=== PATIENT | male | born 1945 | race Caucasian/White ===

== ENCOUNTER 2016-12-18 19:05 | Inpatient (IN) | payer MEDICARE, BC ==
[2016-12-18] MEDS ORDERED: NS 0.9% 1000 ML* 1,000 ML IV ONE (19:08)
[2016-12-18] MEDS ORDERED: Aspirin TAB* 325 MG PO ONE (19:08)
[2016-12-18 19:28] LABS: Hematocrit 34 % (42-52); Hemoglobin 10.9 g/dl (14.0-18.0); Mean Corpuscular HGB Conc 33 g/dl (31-36); Mean Corpuscular Hemoglobin 31 pg (27-31); Mean Corpuscular Volume 94 fL (80-94); Mean Platelet Volume 10 um3 (7.4-10.4); Red Blood Count 3.59 10^6/ul (4.0-5.4); Red Cell Distribution Width 14 % (10.5-15); White Blood Count 12.3 10^3/ul (3.5-10.8)
[2016-12-18 19:29] LABS: Add Diff/Slide Review? Slide Review Added; Comments Flag Yes
--- NOTE | 2016-12-18 19:29 | RAD ---
INDICATION: Neurologic change. Code ricardo. COMPARISON: MRI brain 04/26/2015; CT brain 04/25/2015 TECHNIQUE: Noncontrast axial source images were acquired from the skull base to the vertex. FINDINGS: Ventricles/sulci: There is cortical atrophy with compensatory dilatation of the CSF spaces. Brain parenchyma: There is a remote pontine infarct. There is mild periventricular and subcortical white matter change compatible with chronic ischemia. Intracranial hemorrhage:None. Extra-axial spaces: There are no abnormal extra axial fluid collections or evidence of extra-axial mass. Calvarium: There is no calvarial fracture or other calvarial abnormality. Scalp: There is no evidence of scalp or extracalvarial soft tissue abnormality. Paranasal sinuses/mastoid: There is right ethmoid sinus. Compressive thickening. There is no air-fluid level in the right maxillary antrum The remaining paranasal sinuses and mastoid air cells are clear. Other: None. IMPRESSION: Cortical atrophy with chronic ischemic changes to include a remote pontine infarct. No acute findings. Findings called to ED at 1924 hours
[2016-12-18 19:43] LABS: Albumin 3.6 g/dL (3.2-5.2); BUN/Creatinine Ratio 14.3 (8-20); Calcium 9.2 mg/dL (8.6-10.3); EGFR African American 61.1 (>60); EGFR Non-African American 47.5 (>60); Globulin 3.3 g/dL (2-4); HDL Cholesterol 33.7 mg/dL; Potassium 5.4 mmol/L (3.5-5.0); Total Bilirubin 0.8 mg/dL (0.2-1.0); Total Protein 6.9 g/dL (6.4-8.9)
[2016-12-18 19:44] LABS: Troponin I 0.01 ng/mL (<0.04)
--- NOTE | 2016-12-18 19:51 | RAD ---
INDICATION: Altered mental status COMPARISON: Chest x-ray 04/25/2015 TECHNIQUE: An AP portable view obtained at 1945 hours is submitted. FINDINGS: Bones/Soft Tissues: There are no acute bony findings. Cardiomediastinal: The cardiomediastinal silhouette is normal. Lungs: The examination is expiratory with vascular crowding. There are no focal infiltrates. Pleura: There are no pleural effusions. Other: None IMPRESSION: EXPIRATORY EXAMINATION. NO FOCAL INFILTRATES.
[2016-12-18] MEDS ORDERED: Naloxone* 0.4 MG/ML 10 ML VIAL ONE (20:17)
[2016-12-18] MEDS ORDERED: Naloxone* 0.4 MG/ML 1 ML VIAL IV ONE (20:32)
--- NOTE | 2016-12-18 22:44 | CONSULT ---
Consult Consult: 71 yo RHM w/ HTN, HL,CKD, DM (likely neuropathy, left foot ulceration), CAD with stent (on brilinta), right pontine stroke, presenting with confusion and altered sensorium. There was initial concern by the ED re left vs bilateral weakness, with a fluctuating exam and cooperation. He has no specific concerns and answers most questions in delayed monosyllables. He is accompanied by his daughter and ex ; they note that he is irritable and short tempered at times vs tractable at other times. He apparently was in the [facility] ED yesterday after a fall and confusion beyond baseline; he uses a cane in general. [facility]; his daughter notes that the terms encephalopathy and early dementia have been used. His daughter checked his BG at home and it was 120s. He had a right pontine stroke found in 05/07 after presenting with a variety of symptoms, including a fall and erratic driving; he was seen by Dr Multani at the time. 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 Often falls asleep. Cranial Nerves: Funduscopy deferred; PERRL; corneals intact; resists eye opening ; EOM intact grossly but formal testing cooperation limited; same with visual esquivel; face symmetric; tongue midline Motor: normal tone; distal foot intrinsic atrophy. Power testing is 5/5, with mild intermittent cooperation limitations eg refused to participate in manual motor testing of left leg, which I had seen him lift volitionally earlier. Frequent myoclonus and asterixis with arms out Sensory: vibration and touch are intact Reflexes: 1+ arms; knees and ankles absent. Plantar responses are equivocal to flexor right vs left foot bandaged Coordination: finger to nose is accurate Gait: deferred Serologies: LFTs, trop, LDL, NH3 are all normal or negative; WBC 12, K 5.4, Cr 1.46 Priors: aic 10.7 in 05/07; cpk and hiv neg in 2011 Imaging: Head CT reviewed and negative save remote right pontine infarct (was acute on mri in 05/07); also wonder re right temporal atrophy 05/07 CTA and MRA negative Echo neg 05/07, incl bubble study Cxr neg Impression: 71 yo RHM w/ HTN, HL,CKD, DM (likely neuropathy, left foot ulceration), CAD with stent (on brilinta), right pontine stroke (negative large vessel and cardiac workup), presenting with global waxing waning confusion and altered sensorium, myoclonus/asterixis. His exam is otherwise non localizing; and CT shows only his old infarct. 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 He has some modest lab abnormalities; further testing could include UA, foot inspection and xrays or other imaging if clinically indicated to assess for osteo, getting his labs/workup from recent [facility] visit. There are no other acute neuro recommendations.
--- NOTE | 2016-12-18 23:51 | ED ---
Jeanmarie Galicia Billy, scribed for Duc Chance MD on 12/18/16 at 1935 . Neurological HPI - HPI Summary HPI Summary: Patient is a 71 year-old male BIBA to [facility] presenting with constant left-sided extremity weakness and speech impairment. Per EMS, his son, who has been with him all day, states that he first noticed the symptoms at 1720 today. 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 EMS reports his speech has improved en route. The patient reports dizziness at this time but is unable to describe this sensation further. He denies any pain. Patient has a history of multiple TIAs. - History of Current Complaint Chief Complaint: EDAltMentalStatus Stated Complaint: AMS-POSS STROKE Time Seen by Provider: 12/18/16 19:08 Hx Obtained From: Patient, EMS Onset/Duration: Gradual Onset, Started minutes ago Timing: Constant Onset Severity: Moderate Current Severity: Moderate Neurological Deficit Location: LUE, LLE Character: Dizzy, Motor Weakness, Impaired Speech Aggravating: Nothing Alleviating: Nothing Associated Signs and Symptoms: Positive: Weakness, Impaired Speech - Allergy/Home Medications Allergies/Adverse Reactions: Allergies Allergy/AdvReac Type Severity Reaction Status Date / Time No Known Allergies Allergy Verified 11/09/14 17:26 Home Medications: Home Medications Ascorbic Acid TAB* [Vitamin C TAB*] 500 mg PO DAILY 12/18/16 [History Confirmed 12/18/16] Atorvastatin* [Lipitor*] 80 mg PO 1700 12/18/16 [History Confirmed 12/18/16] DULoxetine DR SOTO* [Cymbalta CAP*] 30 mg PO DAILY 12/18/16 [History Confirmed ] Insulin Aspart PEN(NF) [Novolog Flexpen] 100 unit SC TID 12/18/16 [History Confirmed 12/18/16] Levofloxacin TAB* [Levaquin TAB*] 750 mg PO DAILY 12/18/16 [History Confirmed ] Levothyroxine TAB* [Synthroid TAB*] 125 mcg PO DAILY 12/18/16 [History Confirmed 12/18/16] Metoprolol Tartrate TAB* [Lopressor TAB*] 12.5 mg PO DAILY 12/18/16 [History Confirmed 12/18/16] Ticagrelor* [Brilinta*] 90 mg PO BID 12/18/16 [History Confirmed 12/18/16] clonazePAM TAB(*) [KlonoPIN TAB(*)] 0.5 mg PO BID 12/18/16 [History Confirmed ] PMH/Surg Hx/FS Hx/Imm Hx Endocrine/Hematology History: Reports: Hx Diabetes, Hx Thyroid Disease Cardiovascular History: Reports: Hx Coronary Artery Disease, Hx Hypercholesterolemia, Hx Hypertension Denies: Hx Congestive Heart Failure Respiratory History: Reports: Hx Chronic Obstructive Pulmonary Disease (COPD) GI History: Reports: Hx Gastroesophageal Reflux Disease History: Reports: Hx Benign Prostatic Hyperplasia, Hx Kidney Stones Denies: Hx Renal Disease Musculoskeletal History: Reports: Hx Back Problems Sensory History: Reports: Hx Contacts or Glasses - Not with pt Opthamlomology History: Reports: Hx Contacts or Glasses - Not with pt Neurological History: Reports: Hx Dementia - Vascular, Hx Transient Ischemic Attacks (TIA) - Surgical History Surgery Procedure, Year, and Place: kidney stone ~2009, growth on back ~1983 Infectious Disease History: No Infectious Disease History: Denies: Traveled Outside the [place] in Last 30 Days - Family History Known Family History: Positive: Cardiac Disease - Social History Alcohol Use: None Substance Use Type: Reports: None Smoking Status (MU): Former Smoker Type: Smokeless Tobacco Review of Systems Negative: Fever Neurological: Other - dizzy Positive: Weakness, Slurred Speech All Other Systems Reviewed And Are Negative: Yes Physical Exam Triage Information Reviewed: Yes Vital Signs On Initial Exam: Initial Vitals Temp Pulse Resp BP Pulse Ox 100.3 F 94 18 130/61 100 12/18/16 19:10 12/18/16 19:10 12/18/16 19:10 12/18/16 19:10 12/18/16 19:10 Vital Signs Reviewed: Yes Diagnostics - Vital Signs Vital Signs Temp Pulse Resp BP Pulse Ox 12/18/16 19:10 100.3 F 94 18 130/61 100 - Laboratory Lab Results: Lab Results 12/18/16 Range/Units 19:22 WBC 12.3 H (3.5-10.8) 10^3/ul RBC 3.59 L (4.0-5.4) 10^6/ul Hgb 10.9 L (14.0-18.0) g/dl Hct 34 L (42-52) % MCV 94 (80-94) fL MCH 31 (27-31) pg MCHC 33 (31-36) g/dl RDW 14 (10.5-15) % Plt Count 169 (150-450) 10^3/ul MPV 10 (7.4-10.4) um3 Neut % (Auto) 74.7 (38-83) % Lymph % (Auto) 7.6 L (25-47) % [place] % (Auto) 17.2 H (1-9) % Eos % (Auto) 0 (0-6) % Baso % (Auto) 0.5 (0-2) % Absolute Neuts (auto) 9.2 H (1.5-7.7) 10^3/ul Absolute Lymphs (auto) 0.9 L (1.0-4.8) 10^3/ul Absolute Monos (auto) 2.1 H (0-0.8) 10^3/ul Absolute Eos (auto) 0 (0-0.6) 10^3/ul Absolute Basos (auto) 0.1 (0-0.2) 10^3/ul Absolute Nucleated RBC 0.01 10^3/ul Nucleated RBC % 0.1 Result Diagrams: 12/18/16 19:22 12/18/16 19:22 Lab Statement: Any lab studies that have been ordered have been reviewed, and results considered in the medical decision making process. - Radiology CXR Radiology Interpretation Completed By: Radiologist - Expiratory examination. No focal infiltrates. - CT brain CT Interpretation Completed By: Radiologist - Cortical atrophy with chronic ischemic changes to include a remote pontine infarct. No acute findings. - EKG 1915 EKG Interpretation: borderline sinus tachy 91 bpm, no STEMI NIH Scale - NIH Scale Level of Consciousness: Responds to Minor Stimulation Ask Patient the Month and His/Her Age: Neither Correct/Aphasic Ask Pt to Open/Close Eyes and Lead Radiologic Technologist/Release Non-Paretic Hand: Both Correctly Best Gaze (Only Horizontal Eye Movement): Normal Visual Field Testing: No Visual Loss Facial Paresis-Pt to Smile & Close Eyes or Grimace Symmetry: Normal/Symmetrical Motor Function - Right Arm: Drifts LT 10 seconds Motor Function - Left Arm: Drifts LT 10 seconds Motor Function - Right Leg: Drifts LT 10 seconds Motor Function - Left Leg: No Effort Against Lacey Limb Ataxia-Must be out of Proportion to Weakness Present: Absent Sensory (Use Pinprick to Test Arms/Legs/Trunk/Face): Normal Best Language (Describe Picture, Name Items): Some Loss Dysarthria (Read Several Words): Slurs Some Words Extinction and Inattention: No Abnormality Total Score: 11 Course/Dx - Course Course Of Treatment: Mr. Efrain Preston presented with an alteration in his baseline mental status. It was difficult to ascertain what his baseline was and his exam fluctuated. His temp was high normal but he was not tachy and did not meet sepsis requirements. He had had a partial toe amputaion on the and the wound was clean. He was given fluids and consulted on by neuro who felt that this was not an acute stroke but more likely a metabolic encephalopathy. - Diagnoses Provider Diagnoses: Altered mental status During the Visit The Following Alert/Code Occurred: Code Vu - Physician Notifications Discussed Care of Patient With: Dr. Mata (radiology) @ 1923: CT brain findings reviewed. Dr. Lyon (neurology) @ 193. Dr. Lyon ( neurology) @ 2004: physical exam findings discussed. Dr. Dash (hospitalist) @ 2: accepts admission. Instructed by Provider To: Admit As Inpatient Discharge - Discharge Plan Condition: Stable Disposition: ADMITTED TO [facility] Referrals: Memo Donaldson MD [Primary Care Provider] - The documentation as recorded by the Jeanmarie dennis Billy accurately reflects the service I personally performed and the decisions made by me, Duc Chance MD.
[2016-12-19] MEDS ORDERED: Cetirizine* 10 MG TAB PO PRN (00:31)
[2016-12-19] MEDS ORDERED: Dextrose 50% Syringe 50 ML* 25 GM/50 ML SYRINGE IV PUSH PRN (01:54)
[2016-12-19] MEDS: Levothyroxine TAB* 125 MCG TAB PO SCH (05:41)
[2016-12-19] MEDS: Heparin VIAL(*) 5000 UNITS/ML VIAL (FIVE THOUSAND) SUBCUT SCH ×3 (05:51→21:37)
[2016-12-19] MEDS ORDERED: Insulin LISPRO* 1 UNITS UNIT SUBCUT ONE (09:39)
[2016-12-19] MEDS: Insulin LISPRO* 1 UNITS UNIT SUBCUT SCH ×4 (09:45→21:37)
[2016-12-19] MEDS: Gabapentin CAP(*) 300 MG PO SCH ×2 (09:48→19:37)
[2016-12-19] MEDS: Enalapril TAB* 20 MG PO SCH ×2 (09:48→19:37)
[2016-12-19] MEDS: Finasteride TAB* 5 MG PO SCH (09:49)
[2016-12-19] MEDS: Metoprolol Tartrate TAB* 25 MG PO SCH (09:49)
[2016-12-19] MEDS: DULoxetine DR CAP* 30 MG CAP.DR PO SCH (09:49)
[2016-12-19] MEDS: Ascorbic Acid TAB* 500 MG PO SCH (09:49)
[2016-12-19] MEDS: clonazePAM TAB(*) 0.5 MG PO SCH ×2 (09:49→19:38)
[2016-12-19] MEDS: Aspirin EC Low Dose* 81 MG TAB.EC PO SCH (09:49)
[2016-12-19] MEDS: Cholecalciferol TAB* 1000 UNITS PO SCH (09:49)
[2016-12-19] MEDS: Ticagrelor* 90 MG TAB PO SCH ×2 (09:50→19:37)
[2016-12-19] MEDS: Acetaminophen TAB* 325 MG PO PRN ×2 (13:07→21:00)
[2016-12-19 16:16] LABS: Urine Bilirubin Negative (Negative); Urine Glucose 1+(50 mg/dL) (Negative); Urine Nitrite Negative (Negative)
[2016-12-19] MEDS: Atorvastatin* 80 MG TAB PO SCH (17:50)
[2016-12-19 18:49] LABS: TSH (Thyroid Stimulating Horm) 0.36 mcIU/mL (0.34-5.60)
[2016-12-19] MEDS ORDERED: Haloperidol INJ IV/IM* 5 MG/ML AMP IV SLOW PU ONE (19:15)
[2016-12-19] MEDS ORDERED: Haloperidol INJ IV/IM* 5 MG/ML AMP ONE (19:21)
--- NOTE | 2016-12-19 20:38 | PN ---
Subjective Date of Service: 12/19/16 Interval History: Patient seen and examined at bedside. Pt isn't willing to participate in discussing how he is feeling, when asked he says "lousy" and closes his eyes. Pt 's daughter states that he has been declining over the last few months. She reports that he had a toe amputation approximately 10 days ago, at which time he was started on Levaquin. Pt was also started on Klonopin in the last month. Pt's states that he has developed a "shuffling" gait and been unsteady for the last few months also. She states that his happens intermittently and his has been having increased falls. C/O headache, pain with urination, and generalized pain. No other complaints at this time. Denies dizziness. Family History: Unchanged from Admission Social History: Unchanged from Admission Past Medical History: Unchanged from Admission Objective Active Medications: Acetaminophen (Tylenol Tab*) 650 mg PO Q4H PRN Reason: FEVER/PAIN Ascorbic Acid (Vitamin C Tab*) 500 mg PO DAILY [facility] Aspirin (Aspirin Ec Low Dose*) 81 mg PO DAILY [facility] Atorvastatin Calcium (Lipitor*) 80 mg PO 1700 [facility] Cetirizine HCl (Zyrtec*) 10 mg PO DAILY PRN; Protocol Reason: Allergy Symptoms Cholecalciferol (Vitamin D Tab*) 2,000 units PO DAILY [facility] Clonazepam (Klonopin Tab(*)) 0.5 mg PO BID [facility] Dextrose (D50w Syringe 50 Ml*) 12.5 gm IV PUSH .FOR FS < 60 - SS PRN Reason: FS < 60 Duloxetine HCl (Cymbalta Cap*) 30 mg PO DAILY [facility] Enalapril Maleate (Vasotec Tab*) 20 mg PO BID [facility] Finasteride (Proscar Tab*) 5 mg PO DAILY [facility] Gabapentin (Neurontin Cap(*)) 900 mg PO BID [facility] Heparin Sodium (Porcine) (Heparin Vial(*)) 5,000 units SUBCUT Q8HR [facility] Insulin Glargine (Lantus(*)) 100 units SUBCUT BEDTIME [facility] Insulin Human Lispro (Humalog*) 0 units SUBCUT ACHS [facility]ER Reason: Protocol Levothyroxine Sodium (Synthroid Tab*) 125 mcg PO 0600 [facility] Metoprolol Tartrate (Lopressor Tab*) 12.5 mg PO DAILY [facility] Ticagrelor (Brilinta*) 90 mg PO BID [facility]ER Vital Signs 12/19/16 12/19/16 12/19/16 02:00 02:30 02:44 Temperature Pulse Rate 82 82 81 Respiratory 26 0 15 Rate Blood Pressure 131/54 103/37 114/52 (mmHg) O2 Sat by Pulse 93 93 92 Oximetry 12/19/16 12/19/16 12/19/16 03:00 03:01 03:09 Temperature 99.2 F Pulse Rate 81 84 Respiratory 9 15 Rate Blood Pressure 127/59 (mmHg) O2 Sat by Pulse 94 94 Oximetry 12/19/16 12/19/16 12/19/16 04:13 04:18 04:21 Temperature 98.5 F Pulse Rate 88 Respiratory 18 18 16 Rate Blood Pressure 146/44 (mmHg) O2 Sat by Pulse 98 Oximetry 12/19/16 12/19/16 12/19/16 06:49 07:29 08:00 Temperature 98.1 F 98.9 F Pulse Rate 95 91 Respiratory 16 16 16 Rate Blood Pressure 132/67 134/54 (mmHg) O2 Sat by Pulse 97 93 93 Oximetry 12/19/16 12/19/16 12/19/16 08:49 09:48 09:49 Temperature 98.6 F Pulse Rate 92 Respiratory 16 18 18 Rate Blood Pressure 127/59 (mmHg) O2 Sat by Pulse 92 Oximetry 12/19/16 12/19/16 12/19/16 11:48 11:49 13:57 Temperature 98.1 F 98.4 F Pulse Rate 71 69 Respiratory 18 16 16 Rate Blood Pressure 118/63 109/57 (mmHg) O2 Sat by Pulse 97 98 Oximetry 12/19/16 12/19/16 12/19/16 19:37 19:38 19:44 Temperature 97.9 F Pulse Rate 85 Respiratory 22 22 22 Rate Blood Pressure 127/61 (mmHg) O2 Sat by Pulse 98 Oximetry Oxygen Devices in Use Now: Nasal Cannula - 2L Appearance: NAD, laying in bed. Eyes: No Scleral Icterus, PERRLA Ears/Nose/Mouth/Throat: NL Teeth, Lips, Gums, Mucous Membranes Moist Neck: NL Appearance and Movements; NL JVP, Trachea Midline Respiratory: Symmetrical Chest Expansion and Respiratory Effort, Clear to Auscultation Cardiovascular: NL Sounds; No Murmurs; No JVD, RRR Abdominal: NL Sounds; No Tenderness; No Distention - Bowel sounds present Extremities: No Edema Skin: - - Incision to Neurological: NL Muscle Strength and Tone, - - Alert and Oriented to Place "[place]" and people. Unsteady gait. Lines/Tubes/Other Access: Clean, Dry and Intact Peripheral IV - site benign Nutrition: Taking PO's Result Diagrams: 12/18/16 19:22 12/18/16 19:22 Assess/Plan/Problems-Billing Assessment: Mr. Preston is a 71 yo male with PMH significant for HTN, HLD, hypothyroidism, CKD, DM, CAD and CVA who presented to the emergency room with altered mental status. - Patient Problems (1) Altered mental status Code(s): R41.82 - ALTERED MENTAL STATUS, UNSPECIFIED SNOMED Code(s): 241758930 Comment: Pts family states he has become more confused over the last few months and weeks. Pts family also reports sun downing. Pt has been on Levaquin after his toe amputation. Neurology consult, input appreciated. Neuro doesnt feel this is a new CVA. ? dementia, toxic metabolic encephalopathy. Pt with leukocytosis, chest x-ray with no acute findings, UA WNL and feet do not appear to be source of infection. Suspect that his may reflect postoperative delirium. Will stop Levaquin. Offer supportive care. Will check TSH. (2) HTN (hypertension) Code(s): I10 - ESSENTIAL (PRIMARY) HYPERTENSION SNOMED Code(s): 95547546 Comment: SBP 100-140's. Continue metoprolol and vasotec (3) CAD (coronary artery disease) Code(s): I25.10 - ATHSCL HEART DISEASE OF [place] CORONARY ARTERY W/O ANG PCTRS SNOMED Code(s): 30076955 Comment: Stable. Continue ASA, statin, betablocker (4) Diabetes Code(s): E11.9 - TYPE 2 DIABETES MELLITUS WITHOUT COMPLICATIONS SNOMED Code(s) : 74321036 Comment: Glucose 150-180's. Continue Lispro SS and lantus (5) Hypothyroidism Code(s): E03.9 - HYPOTHYROIDISM, UNSPECIFIED SNOMED Code(s): 54838496 Comment: Will check TSH, continue levothyroxine (6) DVT prophylaxis Code(s): QCH5386 - SNOMED Code(s): 283475703 Comment: Continue SQ Heparin (7) DNR (do not resuscitate) Status and Disposition: Inpatient. Suspect Pt will need to have NH placement.
[2016-12-19] MEDS: Insulin GLARGINE(*) 1 UNITS UNIT SUBCUT SCH (21:36)
[2016-12-20] MEDS: Levothyroxine TAB* 125 MCG TAB PO SCH (05:35)
[2016-12-20] MEDS: Heparin VIAL(*) 5000 UNITS/ML VIAL (FIVE THOUSAND) SUBCUT SCH ×3 (05:37→22:21)
--- NOTE | 2016-12-20 08:09 | HP ---
HISTORY AND PHYSICAL: DATE OF ADMISSION: 12/19/16 CHIEF COMPLAINT: Confusion, altered mental status. HISTORY OF PRESENT ILLNESS: The patient is a 71-year-old gentleman who presented to [facility] with a chief complaint of increased confusion as per his family. Apparently last night before he came he slipped and fell. He went to [facility] for an evaluation, where they did not find anything acute including a CAT scan and was sent home. The family says they were told he has a new diagnosis of encephalopathy but were not sure what that meant. They admitted also he was getting more and more confused lately and now he lives alone because his could not stay there anymore. Apparently, he gets somewhat violent too. What happened was yesterday his came over to see him and he was sitting outside and he went inside to sit on living room couch and would not get up. His tried to make him comfortable and putting pillows under him but he would not move. The daughter came over much later that day and saw he was still in the same position. His legs were stiff. They could not get him to move, so they called 911. 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 PAST MEDICAL HISTORY: Significant for BPH, diabetes mellitus, hypertension, GERD, hyperlipidemia, frontal lobe disease, new onset vascular dementia, TIAs, hypothyroidism, tremor, coronary artery disease, kidney stones, low back pain, olecranon bursitis, and sciatica. CURRENT MEDICATIONS: 1. Metoprolol tartrate 12.5 mg daily. 2. Atorvastatin 80 mg daily. 3. Levofloxacin 750 mg daily. 4. Duloxetine 30 mg daily. 5. Cholecalciferol 2000 units daily. 6. Ascorbic acid 500 mg daily. 7. Potassium chloride 20 mEq 3 times a day. 8. Omeprazole 20 mg twice daily. 9. Levothyroxine 125 mcg daily. 10. Finasteride 5 mg daily. 11. Nandini 180 mg daily. 12. Enalapril 20 mg twice daily. 13. Clonazepam 0.5 mg twice daily. 14. Lantus insulin 100 units subcu at bedtime. 15. Insulin aspartate 100 units 3 times daily. 16. Brilinta 90 mg twice daily. 17. Gabapentin 900 mg twice daily. 18. Aspirin 81 mg daily. ALLERGIES: He has allergies/adverse reactions to ELAVIL and BENZODIAZEPINES. FAMILY HISTORY: His mother in 40s of "female cancer". Father in his 70s of an NE. SOCIAL HISTORY: No tobacco, quit many years ago. Chews tobacco though. No alcohol or recreational drug use. 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 His daughter is his healthcare proxy, Magdalena Kelly, number is [phone]. REVIEW OF SYSTEMS: Unable to obtain from patient because of his confusion. PHYSICAL EXAMINATION GENERAL: A pleasant gentleman lying in bed, in no acute distress. VITAL SIGNS: Temperature is 99.2 degrees, heart rate 88 beats per minute, respiratory rate 18 breaths per minute, pulse ox 98%, blood pressure 146/44. HEENT: Normocephalic and atraumatic. Pupils are equal, round, and reactive to light. Moist mucous membranes. NECK: Supple. No JVD, bruits, palpable thyroid, or lymphadenopathy. CHEST: Clear to auscultation and percussion bilaterally. CARDIOVASCULAR: S1, S2 appreciated. ABDOMEN: Positive bowel sounds in all 4 quadrants. Soft, nontender, and nondistended. No hepatosplenomegaly. EXTREMITIES: No cyanosis, clubbing. He has some mild edema. +2 peripheral pulses bilaterally. NEURO: He is alert and oriented x1. Moves all extremities. SKIN: No distinct rashes and no abnormalities. LABORATORY DATA: White count 12.3, hemoglobin 10.9, hematocrit 34, platelets 169. Sodium is 133, potassium 5.4, chloride 98, CO2 29, BUN 21, creatinine 1.47 , glucose 187. Troponin 0.01. Urinalysis is unremarkable. Brain CT was interpreted by Radiology as cortical atrophy with chronic ischemic changes to include remote pontine infarct. No acute findings. Chest x-ray was interpreted by Radiology as examination no focal infiltrate. EKG shows normal sinus rhythm with 91 beats per minute. Normal axis. No acute ST-T wave changes. ASSESSMENT AND PLAN: 1. Altered mental status: It is unclear at this point what is going on. I think he does have dementia and perhaps the trauma from hitting his head has made an acute change. There does not seem to be any infection. Regardless, the patient should be monitored. He may need a social work consult. He may need placement, as he may be unsafe at home at this time. I do not think he needs anything like a spinal tap. He has no focal neurological problems, no neck stiffness, no fever, no headache. We have attempted UA. He does have some what appears to be an infection on his foot, but it is unimpressive that he osteo causing this. 2. Diabetes mellitus. Continue Lantus, finish the sliding scale insulin. 3. Coronary artery disease, stable. Continue current regimen. 4. Hypertension. Borderline control. Continue current regimen. Adjust medications accordingly. 5. Fluids, Electrolytes, Nutrition. Consistent carb diet. 6. Deep venous thrombosis prophylaxis. Heparin subcu. 7. The patient is a [id number]. TIME SPENT: Over 75 minutes was spent on this H and P; more than 40 minutes of which was spent in direct [id number] contact with the patient in evaluation, physical exam, counseling, and coordination of care. CC: Memo Donaldson MD * [id number]/[facility] #: [id number] MTDD
[2016-12-20] MEDS: Insulin LISPRO* 1 UNITS UNIT SUBCUT SCH ×4 (08:11→20:57)
[2016-12-20] MEDS: Acetaminophen TAB* 325 MG PO PRN (09:45)
[2016-12-20] MEDS: Cholecalciferol TAB* 1000 UNITS PO SCH (09:46)
[2016-12-20] MEDS: Gabapentin CAP(*) 300 MG PO SCH ×2 (09:47→19:25)
[2016-12-20] MEDS: Ticagrelor* 90 MG TAB PO SCH ×2 (09:47→19:25)
[2016-12-20] MEDS: Enalapril TAB* 20 MG PO SCH ×2 (09:48→19:26)
[2016-12-20] MEDS: Finasteride TAB* 5 MG PO SCH (09:49)
[2016-12-20] MEDS: clonazePAM TAB(*) 0.5 MG PO SCH ×2 (09:49→19:26)
[2016-12-20] MEDS: Aspirin EC Low Dose* 81 MG TAB.EC PO SCH (09:49)
[2016-12-20] MEDS: DULoxetine DR CAP* 30 MG CAP.DR PO SCH (09:49)
[2016-12-20] MEDS: Metoprolol Tartrate TAB* 25 MG PO SCH (09:50)
[2016-12-20] MEDS: Ascorbic Acid TAB* 500 MG PO SCH (09:50)
--- NOTE | 2016-12-20 10:47 | PN ---
Subjective Date of Service: 12/20/16 Interval History: Patient seen and examined at bedside. Pt states that he is feeling better today. Denies fever, chills, headache, shortness of breath, chest discomfort, urinary symptoms, pain, N/V/D. Pt is anxious to leave, explained he needed to be seen by Physical Therapy. Patient's family is concerned that he has an acute Neurological process and would like Neurology to re-eval the patient. Family History: Unchanged from Admission Social History: Unchanged from Admission Past Medical History: Unchanged from Admission Objective Active Medications: Acetaminophen (Tylenol Tab*) 650 mg PO Q4H PRN Reason: FEVER/PAIN Ascorbic Acid (Vitamin C Tab*) 500 mg PO DAILY [facility] Aspirin (Aspirin Ec Low Dose*) 81 mg PO DAILY [facility] Atorvastatin Calcium (Lipitor*) 80 mg PO 1700 [facility] Cetirizine HCl (Zyrtec*) 10 mg PO DAILY PRN; Protocol Reason: Allergy Symptoms Cholecalciferol (Vitamin D Tab*) 2,000 units PO DAILY [facility] Clonazepam (Klonopin Tab(*)) 0.5 mg PO BID [facility] Dextrose (D50w Syringe 50 Ml*) 12.5 gm IV PUSH .FOR FS < 60 - SS PRN Reason: FS < 60 Duloxetine HCl (Cymbalta Cap*) 30 mg PO DAILY [facility] Enalapril Maleate (Vasotec Tab*) 20 mg PO BID [facility] Finasteride (Proscar Tab*) 5 mg PO DAILY [facility] Gabapentin (Neurontin Cap(*)) 900 mg PO BID [facility] Heparin Sodium (Porcine) (Heparin Vial(*)) 5,000 units SUBCUT Q8HR [facility] Insulin Glargine (Lantus(*)) 100 units SUBCUT BEDTIME [facility] Insulin Human Lispro (Humalog*) 0 units SUBCUT ACHS [facility] Levothyroxine Sodium (Synthroid Tab*) 125 mcg PO 0600 [facility] Metoprolol Tartrate (Lopressor Tab*) 12.5 mg PO DAILY [facility] Ticagrelor (Brilinta*) 90 mg PO BID [facility] Vital Signs 12/19/16 12/19/16 12/19/16 11:48 11:49 13:57 Temperature 98.1 F 98.4 F Pulse Rate 71 69 Respiratory 18 16 16 Rate Blood Pressure 118/63 109/57 (mmHg) O2 Sat by Pulse 97 98 Oximetry 12/19/16 12/19/16 12/19/16 19:37 19:38 19:44 Temperature 97.9 F Pulse Rate 85 Respiratory 22 22 22 Rate Blood Pressure 127/61 (mmHg) O2 Sat by Pulse 98 Oximetry 12/19/16 12/20/16 12/20/16 23:24 04:25 08:10 Temperature 97.7 F 97.7 F 98.3 F Pulse Rate 92 81 87 Respiratory 16 16 16 Rate Blood Pressure 122/62 116/61 138/66 (mmHg) O2 Sat by Pulse 96 96 90 Oximetry Oxygen Devices in Use Now: Nasal Cannula - 2L Appearance: NAD, sitting up in a chair. Eyes: No Scleral Icterus, PERRLA Ears/Nose/Mouth/Throat: NL Teeth, Lips, Gums, Mucous Membranes Moist Neck: NL Appearance and Movements; NL JVP, Trachea Midline Respiratory: Symmetrical Chest Expansion and Respiratory Effort, Clear to Auscultation Cardiovascular: NL Sounds; No Murmurs; No JVD, RRR Abdominal: NL Sounds; No Tenderness; No Distention - Bowel sounds present Extremities: No Edema Skin: - - Incision to left second toe well approximated with sutures intact, Ulcer to 2rd left toe. No errythema to left toes. Pt with purple discoloration to right toes, Pt states this is a birthmark. Neurological: - - Alert and Oriented to Person, Place, states it's 2011 and Yris is the President. Lines/Tubes/Other Access: Clean, Dry and Intact Peripheral IV - site benign Nutrition: Taking PO's Result Diagrams: 12/18/16 19:22 12/18/16 19:22 Additional Lab and Data: Assess/Plan/Problems-Billing Assessment: Mr. Preston is a 71 yo male with PMH significant for HTN, HLD, hypothyroidism, CKD, DM, CAD and CVA who presented to the emergency room with altered mental status. - Patient Problems (1) Altered mental status Code(s): R41.82 - ALTERED MENTAL STATUS, UNSPECIFIED SNOMED Code(s): 447477945 Comment: - Continues to have some confusion, ? if he is now back to baseline. - Pt has been on Levaquin after his toe amputation. This has been stopped. - Neurology consult, input appreciated. Suspect dementia, toxic metabolic encephalopathy. - Pt with leukocytosis, chest x-ray with no acute findings, UA WNL and feet do not appear to be source of infection. - TSH WNL - Suspect that his may be delirium in addition to Pt's dementia. - Offer supportive care. - Will ask Neurology to re-eval (2) HTN (hypertension) Code(s): I10 - ESSENTIAL (PRIMARY) HYPERTENSION SNOMED Code(s): 42704019 Comment: SBP 110-130's. Continue metoprolol and vasotec (3) CAD (coronary artery disease) Code(s): I25.10 - ATHSCL HEART DISEASE OF [place] CORONARY ARTERY W/O ANG PCTRS SNOMED Code(s): 93544500 Comment: Stable. Continue ASA, statin, betablocker (4) Diabetes Code(s): E11.9 - TYPE 2 DIABETES MELLITUS WITHOUT COMPLICATIONS SNOMED Code(s) : 61838024 Comment: Glucose 80-210's. Continue Lispro SS and lantus (5) Hypothyroidism Code(s): E03.9 - HYPOTHYROIDISM, UNSPECIFIED SNOMED Code(s): 96498745 Comment: TSH 0.36, continue levothyroxine (6) DVT prophylaxis Code(s): XLZ0170 - SNOMED Code(s): 437816846 Comment: Continue SQ Heparin (7) DNR (do not resuscitate) Status and Disposition: Inpatient. Suspect Pt will need to have NH placement.
--- NOTE | 2016-12-20 11:42 | EEG ---
ELECTROENCEPHALOGRAPHY: DATE OF STUDY: 12/19/16 - ROOM #449 LOCATION: He is an inpatient. REFERRING PHYSICIAN: Dr. Dash. CLINICAL PROBLEM: Increased confusion in a patient with dementia. MEDICATIONS: Include: 1. Insulin. 2. Gabapentin. 3. Clonazepam. REPORT: This 16-channel EEG is remarkable for background activity consisting of a posterior alpha rhythm of about 8 cycles per second which is symmetric and seems to be suppressed by eye opening. Low-voltage fast rhythms otherwise predominating. Movement artifact is noted occasionally. Central and bitemporal slowing is noted intermittently consistent with drowsiness. Stage II sleep is not clearly achieved. Activation procedures are not attempted. There are no focal, lateralized, or epileptiform discharges. CLINICAL IMPRESSION: Essentially normal awake EEG. There are no epileptiform features to this recording. [id number]/CPS #: [id number] MTDD
[2016-12-20] MEDS: Atorvastatin* 80 MG TAB PO SCH (17:43)
--- NOTE | 2016-12-20 17:44 | PN ---
Progress Note - Progress Note SOAP: Neurology progress note Date of service 12/20/16 Subjective: The patient had no acute events since admission. His mental status has been improving since admission. The patient's family had requested a re-evaluation by neurology. Objective: Vital Signs Temp Pulse Resp BP Pulse Ox 97.9 F 69 16 107/57 98 12/20/16 15:48 12/20/16 15:48 12/20/16 15:48 12/20/16 15:48 12/20/16 15:48 Current Medications Acetaminophen (Tylenol Tab*) 650 mg PO Q4H PRN PRN Reason: FEVER/PAIN Last Admin: 12/20/16 09:45 Dose: 650 mg Ascorbic Acid (Vitamin C Tab*) 500 mg PO DAILY [facility] Last Admin: 12/20/16 09:50 Dose: 500 mg Aspirin (Aspirin Ec Low Dose*) 81 mg PO DAILY [facility] Last Admin: 12/20/16 09:49 Dose: 81 mg Atorvastatin Calcium (Lipitor*) 80 mg PO 1700 [facility] Last Admin: 12/20/16 17:43 Dose: 80 mg Cetirizine HCl (Zyrtec*) 10 mg PO DAILY PRN; Protocol PRN Reason: Allergy Symptoms Cholecalciferol (Vitamin D Tab*) 2,000 units PO DAILY [facility] Last Admin: 12/20/16 09:46 Dose: 2,000 units Clonazepam (Klonopin Tab(*)) 0.5 mg PO BID [facility] Last Admin: 12/20/16 09:49 Dose: 0.5 mg Dextrose (D50w Syringe 50 Ml*) 12.5 gm IV PUSH .FOR FS < 60 - SS PRN PRN Reason: FS < 60 Duloxetine HCl (Cymbalta Cap*) 30 mg PO DAILY [facility] Last Admin: 12/20/16 09:49 Dose: 30 mg Enalapril Maleate (Vasotec Tab*) 20 mg PO BID [facility] Last Admin: 12/20/16 09:48 Dose: 20 mg Finasteride (Proscar Tab*) 5 mg PO DAILY [facility] Last Admin: 12/20/16 09:49 Dose: 5 mg Gabapentin (Neurontin Cap(*)) 900 mg PO BID [facility] Last Admin: 12/20/16 09:47 Dose: 900 mg Heparin Sodium (Porcine) (Heparin Vial(*)) 5,000 units SUBCUT Q8HR [facility] Last Admin: 12/20/16 13:47 Dose: 5,000 units Insulin Glargine (Lantus(*)) 100 units SUBCUT BEDTIME [facility] Last Admin: 12/19/16 21:36 Dose: 100 units Insulin Human Lispro (Humalog*) 0 units SUBCUT ACHS [facility] PRN Reason: Protocol Last Admin: 12/20/16 17:43 Dose: 2 units Levothyroxine Sodium (Synthroid Tab*) 125 mcg PO 0600 [facility] Last Admin: 12/20/16 05:35 Dose: 125 mcg Metoprolol Tartrate (Lopressor Tab*) 12.5 mg PO DAILY [facility] Last Admin: 12/20/16 09:50 Dose: 12.5 mg Ticagrelor (Brilinta*) 90 mg PO BID [facility] Last Admin: 12/20/16 09:47 Dose: 90 mg Laboratory Results - last 24 hr 12/18/16 12/19/16 12/20/16 19:22 20:43 07:43 POC Glucose (mg/dL) 219 H 88 TSH 0.36 12/20/16 12/20/16 12:09 16:59 POC Glucose (mg/dL) 167 H 139 H TSH On neurological exam the patient is awake, oriented to self, year, but not month (he says December or January or September), oriented to place and city, can tell his zip code. Speech is fluent and naming is intact. He is slow in processing commands. Face is symmetric. Pupils are symmetric, 3 mm and reactive to light. There is esotropia of the left eye with decreased vision. Tongue is in midline. Palate elevates upward. V1-V3 intact to light touch and pinprick. Muscle tone normal bilaterally. Strength is 5/5 throughout. Sensation is intact to light touch and pinprick in the upper and lower extremities. REINALDO intact bilaterally. No resting or postural tremor. Finger to nose intact bilaterally. Gait is narrow based, but walking is slow and cautious with decrease step lengths and decreased arm swing. MOCA test today, the patient scored 7/30 (lost scores are: 5 scores in visuospatial, 1 score in naming, 5 scores in attention, 2 scores in language, 1 in abstraction, 5 in delayed recall and 4 in orientation). The copy of the test is in the chart. Assessment and Plan: I had a lengthy conversation with the patient's and daughter today. They mentioned that the decline in memory and cognitive function has been a slow process which started probably even before his stroke in 04/2015, probably around 2 years ago or longer, but the decline has been more noticeable in the past 6 months and specially the past 2 months. No clear visual hallucinations are reported, but he had some episodes that he told his that he might be having some dreams without being asleep (this was long time ago, so the does not recall the details). He had at least 3 other episodes similar to the current episode that he had yesterday with an acute change in his mental status. His reports history of resting and action tremor which on my today' s exam are absent. I think this patient has an underlying neurodegenerative disorder which based on the MOCA screening test seems more of a global dysfunction, more consistent with Alzheimer type dementia. He does not have any clear features suggestive of Parkinson's disease or Lewy body dementia. His history is not consistent with vascular dementia (gradual decline vs stepwise decline in vascular dementia). The reported episodes similar to the one he had yesterday are more of an acute encephalopathy superimposed on possibly chronic dementia; secondary to subtle brain insults such as infection, mild concussion ( fall) or electrolyte/blood glucose derangements). My recommendations are at this point: repeat MRI brain to rule out any reversible cause, TSH already checked and is WNL, check Vitamin B12 level and syphilis serology. He needs a neuropsychological evaluation as outpatient ( referral can be made by his PCP). Time at bedside including at least half of the total time discussion with the patient's daughter and was more than 60 minutes.
[2016-12-20] MEDS: Insulin GLARGINE(*) 1 UNITS UNIT SUBCUT SCH (20:58)
[2016-12-21 02:02] LABS: Urine Bilirubin Negative (Negative); Urine Glucose Negative (Negative); Urine Nitrite Negative (Negative)
[2016-12-21] MEDS: Heparin VIAL(*) 5000 UNITS/ML VIAL (FIVE THOUSAND) SUBCUT SCH ×3 (06:03→21:49)
[2016-12-21] MEDS: Levothyroxine TAB* 125 MCG TAB PO SCH (06:03)
[2016-12-21] MEDS ORDERED: Polyethylene Glycol 3350* 17 GM PACKET PO PRN (09:49)
[2016-12-21] MEDS ORDERED: Magnesium Hydroxide LIQ* 30 ML UDC PO PRN (09:49)
[2016-12-21] MEDS ORDERED: Benzocaine/Menthol LOZ* 1 LOZENGE PO PRN (09:50)
--- NOTE | 2016-12-21 09:54 | PN ---
Subjective Date of Service: 12/21/16 Interval History: Patient seen and examined at bedside. Pt would like to go home today. Denies fever, chills, shortness of breath, chest discomfort. Reports constipation. Family History: Unchanged from Admission Social History: Unchanged from Admission Past Medical History: Unchanged from Admission Objective Active Medications: Acetaminophen (Tylenol Tab*) 650 mg PO Q4H PRN Reason: FEVER/PAIN Ascorbic Acid (Vitamin C Tab*) 500 mg PO DAILY [facility] Aspirin (Aspirin Ec Low Dose*) 81 mg PO DAILY [facility] Atorvastatin Calcium (Lipitor*) 80 mg PO 1700 [facility] Cetirizine HCl (Zyrtec*) 10 mg PO DAILY PRN; Protocol Reason: Allergy Symptoms Cholecalciferol (Vitamin D Tab*) 2,000 units PO DAILY [facility] Clonazepam (Klonopin Tab(*)) 0.5 mg PO BID [facility] Dextrose (D50w Syringe 50 Ml*) 12.5 gm IV PUSH .FOR FS < 60 - SS PRN Reason: FS < 60 Duloxetine HCl (Cymbalta Cap*) 30 mg PO DAILY [facility] Enalapril Maleate (Vasotec Tab*) 20 mg PO BID [facility] Finasteride (Proscar Tab*) 5 mg PO DAILY [facility] Gabapentin (Neurontin Cap(*)) 900 mg PO BID [facility] Heparin Sodium (Porcine) (Heparin Vial(*)) 5,000 units SUBCUT Q8HR [facility] Insulin Glargine (Lantus(*)) 100 units SUBCUT BEDTIME [facility] Insulin Human Lispro (Humalog*) 0 units SUBCUT ACHS [facility] Levothyroxine Sodium (Synthroid Tab*) 125 mcg PO 0600 [facility] Metoprolol Tartrate (Lopressor Tab*) 12.5 mg PO DAILY [facility] Ticagrelor (Brilinta*) 90 mg PO BID [facility] Vital Signs 12/20/16 12/20/16 12/20/16 11:49 15:48 19:25 Temperature 97.9 F Pulse Rate 69 Respiratory 16 16 20 Rate Blood Pressure 107/57 (mmHg) O2 Sat by Pulse 98 Oximetry 12/20/16 12/20/16 12/20/16 19:26 20:00 21:25 Temperature Pulse Rate Respiratory 20 20 16 Rate Blood Pressure (mmHg) O2 Sat by Pulse 98 Oximetry 12/20/16 12/21/16 21:26 00:09 Temperature 98.2 F Pulse Rate 72 Respiratory 16 20 Rate Blood Pressure 114/62 (mmHg) O2 Sat by Pulse 95 Oximetry Oxygen Devices in Use Now: Nasal Cannula - 2L Appearance: NAD, laying in bed. Eyes: No Scleral Icterus, PERRLA Ears/Nose/Mouth/Throat: NL Teeth, Lips, Gums, Mucous Membranes Moist Neck: NL Appearance and Movements; NL JVP, Trachea Midline Respiratory: Symmetrical Chest Expansion and Respiratory Effort, Clear to Auscultation Cardiovascular: NL Sounds; No Murmurs; No JVD, RRR Abdominal: NL Sounds; No Tenderness; No Distention - Bowel sounds present Extremities: No Edema Neurological: NL Muscle Strength and Tone, - - Alert and Oriented to Person and Place Lines/Tubes/Other Access: Clean, Dry and Intact Peripheral IV - site benign Nutrition: Taking PO's Result Diagrams: 12/18/16 19:22 12/18/16 19:22 Additional Lab and Data: Assess/Plan/Problems-Billing Assessment: Mr. Preston is a 71 yo male with PMH significant for HTN, HLD, hypothyroidism, CKD, DM, CAD and CVA who presented to the emergency room with altered mental status. - Patient Problems (1) Altered mental status Code(s): R41.82 - ALTERED MENTAL STATUS, UNSPECIFIED SNOMED Code(s): 902125502 Comment: - Continues to have some confusion, ? if he is now back to baseline. - Pt has been on Levaquin after his toe amputation. This has been stopped. - Neurology consult, input appreciated. Suspect dementia, toxic metabolic encephalopathy. - Pt with leukocytosis, chest x-ray with no acute findings, UA WNL and feet do not appear to be source of infection. - TSH WNL, B12 WNL, Syphilis RPR pending - Suspect that his may be delirium in addition to Pt's dementia. - Offer supportive care. - Will get MRI of brain in the AM. (2) HTN (hypertension) Code(s): I10 - ESSENTIAL (PRIMARY) HYPERTENSION SNOMED Code(s): 03236166 Comment: SBP 100-130's. Continue metoprolol and vasotec (3) CAD (coronary artery disease) Code(s): I25.10 - ATHSCL HEART DISEASE OF [place] CORONARY ARTERY W/O ANG PCTRS SNOMED Code(s): 86485599 Comment: Stable. Continue ASA, statin, betablocker (4) Diabetes Code(s): E11.9 - TYPE 2 DIABETES MELLITUS WITHOUT COMPLICATIONS SNOMED Code(s) : 75418042 Comment: Glucose 130-230's. Continue Lispro SS and lantus (5) Hypothyroidism Code(s): E03.9 - HYPOTHYROIDISM, UNSPECIFIED SNOMED Code(s): 38185804 Comment: TSH 0.36, continue levothyroxine (6) DVT prophylaxis Code(s): BTE3395 - SNOMED Code(s): 372488711 Comment: Continue SQ Heparin (7) DNR (do not resuscitate) Status and Disposition: Inpatient. Suspect Pt will need to have NH placement.
[2016-12-21 10:12] LABS: Syphilis Index < 0.1 Index
[2016-12-21] MEDS: Insulin LISPRO* 1 UNITS UNIT SUBCUT SCH ×4 (11:11→21:49)
[2016-12-21] MEDS: Ticagrelor* 90 MG TAB PO SCH ×2 (11:44→21:53)
[2016-12-21] MEDS: Metoprolol Tartrate TAB* 25 MG PO SCH (11:44)
[2016-12-21] MEDS: Ascorbic Acid TAB* 500 MG PO SCH (11:44)
[2016-12-21] MEDS: DULoxetine DR CAP* 30 MG CAP.DR PO SCH (11:44)
[2016-12-21] MEDS: Enalapril TAB* 20 MG PO SCH ×2 (11:45→21:49)
[2016-12-21] MEDS: Cholecalciferol TAB* 1000 UNITS PO SCH (11:45)
[2016-12-21] MEDS: Finasteride TAB* 5 MG PO SCH (11:46)
[2016-12-21] MEDS: clonazePAM TAB(*) 0.5 MG PO SCH ×2 (11:46→21:49)
[2016-12-21] MEDS: Aspirin EC Low Dose* 81 MG TAB.EC PO SCH (11:46)
[2016-12-21] MEDS: Acetaminophen TAB* 325 MG PO PRN (11:46)
[2016-12-21] MEDS: Gabapentin CAP(*) 300 MG PO SCH ×2 (11:46→21:50)
[2016-12-21] MEDS: Atorvastatin* 80 MG TAB PO SCH (17:07)
[2016-12-21] MEDS: Insulin GLARGINE(*) 1 UNITS UNIT SUBCUT SCH (21:48)
[2016-12-22] MEDS: Heparin VIAL(*) 5000 UNITS/ML VIAL (FIVE THOUSAND) SUBCUT SCH ×3 (06:19→21:21)
[2016-12-22] MEDS: Levothyroxine TAB* 125 MCG TAB PO SCH (06:19)
[2016-12-22] MEDS: Insulin LISPRO* 1 UNITS UNIT SUBCUT SCH ×4 (07:27→21:41)
[2016-12-22] MEDS: Aspirin EC Low Dose* 81 MG TAB.EC PO SCH (09:02)
[2016-12-22] MEDS: Metoprolol Tartrate TAB* 25 MG PO SCH (09:02)
[2016-12-22] MEDS: Ascorbic Acid TAB* 500 MG PO SCH (10:40)
[2016-12-22] MEDS: Cholecalciferol TAB* 1000 UNITS PO SCH (10:40)
[2016-12-22] MEDS: Enalapril TAB* 20 MG PO SCH ×2 (10:41→20:59)
[2016-12-22] MEDS: Finasteride TAB* 5 MG PO SCH (10:41)
[2016-12-22] MEDS: Ticagrelor* 90 MG TAB PO SCH ×2 (10:41→20:59)
[2016-12-22] MEDS: Gabapentin CAP(*) 300 MG PO SCH ×2 (10:41→21:05)
[2016-12-22] MEDS: clonazePAM TAB(*) 0.5 MG PO SCH (10:41)
[2016-12-22] MEDS: DULoxetine DR CAP* 30 MG CAP.DR PO SCH (10:41)
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
[2016-12-22] MEDS ORDERED: Haloperidol INJ IV/IM* 5 MG/ML AMP IV SLOW PU ONE (12:02)
[2016-12-22] MEDS ORDERED: LORazepam INJ* 2 MG/ML 1 ML VIAL IV PUSH ONE (13:22)
--- NOTE | 2016-12-22 13:22 | CONS ---
PSYCHIATRIC CONSULTATION DATE OF CONSULT: 12/22/2016. REASON FOR CONSULT: Capacity consultation. HISTORY OF PRESENT ILLNESS: I was asked by Jessica James NP to evaluate Efrain Preston's mental capacity to refuse a medically indicated penitentiary placement. She explained the context was that he has been unable to meet his own medical needs at home and is at risk there that cannot be adequate addressed , and that family along with treatment team feel that penitentiary is required for the patient and in his best interest. I introduced myself to Mr. Preston and explained the context of our meeting. He was highly dismissive and basically told me to leave him alone. However, in the context of my making him aware of the purpose for my visit, specifically a capacity consultation, he did cooperate and answer the basic questions. For the purpose of making decision on accepting or refusing a penitentiary placement, Mr. Preston: 1. Makes a clear decision, "no" he will not accept a penitentiary placement. 2. He fails to manage the facts. He says his only medical problem is "a foot problem" and he reports that he is at "no" risks at home. He says he has no unmet needs. 3. He fails to appreciate the risks he is facing or associate different emotional tones to potentially divergent outcomes. 4. He fails to manage the information that I understand he has been given in a rational manner as we would expect from an average individual. CAPACITY FINDING: Efrain Preston lacks mental capacity to refuse a medically indicated penitentiary placement at this time. Thank you for the opportunity to contribute to the overall care Mr. Preston is receiving here. Please contact me or my coverage group if there are any additional questions or concerns. [id number]/[facility] #: [id number] [facility]ENTERBarrera
[2016-12-22] MEDS ORDERED: Haloperidol INJ IV/IM* 5 MG/ML AMP IV SLOW PU PRN (13:33)
--- NOTE | 2016-12-22 14:15 | PN ---
Hospitalist Progress Note Received call from nursing that patient reported wanting to kill his and also threatening self harm after speaking with Dr. Mcghee. Patient's ex- removed from room for safety. Safety monitor put in place. I came to assess the patient and he states, "I want to ." He then states, "I'm having chest pain. " Patient was ambulating in hallway with security; I helped to escort patient back to room. He has reproducible left sided chest pain and denies radiating pain to left arm, jaw, back. He will not stay seated. He did agree to EKG and blood draw. Troponin and EKG pending. Message left with psychiatry regarding any additional recommendations for patient with SI/HI. Suspect that this may be in reaction to discharge plan for senior living. Continue prn haloperidol; will add Seroquel at this time. Continue to monitor and continue safety monitor.
[2016-12-22] MEDS: QUEtiapine TAB* 25 MG PO SCH (15:14)
--- NOTE | 2016-12-22 16:15 | RAD ---
HISTORY: Altered mental status COMPARISONS: December 27, 2014 TECHNIQUE: The following sequences were obtained of the head: Sagittal T1-weighted images, axial T2-weighted images, axial FLAIR images, axial susceptibility weighted images, axial T1-weighted images. Additionally, axial diffusion-weighted images were obtained with calculated apparent diffusion coefficients. FINDINGS: The study is limited by patient motion artifact. HEMORRHAGE/INFARCT: There is no hemorrhage or acute infarct. MASSES/SHIFT: There is no mass or shift. EXTRA-AXIAL SPACES/MENINGES: There are no extra-axial fluid collections. SULCI AND VENTRICLES: There is diffuse and proportional enlargement of the sulci and ventricles. CEREBRUM: There is minimally elevated T2/FLAIR signal within the periventricular white matter. BRAINSTEM: There is inseparable malacia within the right parasagittal mikel corresponding to the area of previous infarct. CEREBELLUM: There are no focal parenchymal abnormalities. The cerebellar tonsils are normal in size and position. SELLA: The sella is normal. PINEAL: The pineal region is clear. CP ANGLE/TEMPORAL BONES: The labyrinthine structures are grossly normal. VESSELS: Normal flow-voids are noted within the visualized vertebral vasculature. DIFFUSION ABNORMALITIES: There are no diffusion abnormalities. PARANASAL SINUSES/MASTOIDS: There is mild thickening of ethmoid air cells, maxillary sinuses, and frontal sinus. There are-fluid levels within the maxillary sinuses, sphenoid sinus, and frontal sinus. ORBITS: The orbits are unremarkable. BONES AND SOFT TISSUE: No bone or soft tissue abnormalities are noted. OTHER: None IMPRESSION: 1. LIMITED STUDY. 2. INVOLUTIONAL CHANGE WITH FINDINGS CONSISTENT WITH REMOTE PONTINE INFARCT. 3. EXTENSIVE SINUS MUCOSAL INFLAMMATORY DISEASE, WITH AIR-FLUID LEVELS IN THE MAXILLARY SINUSES AND SPHENOID SINUS AND FRONTAL SINUS. IN THE CORRECT CLINICAL SETTING THIS MAY REPRESENT ACUTE SINUSITIS.
[2016-12-22] MEDS: Atorvastatin* 80 MG TAB PO SCH (21:00)
[2016-12-22] MEDS: Insulin GLARGINE(*) 1 UNITS UNIT SUBCUT SCH (21:41)
[2016-12-23] MEDS: clonazePAM TAB(*) 0.5 MG PO SCH ×3 (04:55→21:40)
[2016-12-23] MEDS: Heparin VIAL(*) 5000 UNITS/ML VIAL (FIVE THOUSAND) SUBCUT SCH ×3 (06:26→21:45)
[2016-12-23] MEDS: Levothyroxine TAB* 125 MCG TAB PO SCH (06:31)
[2016-12-23] MEDS: Insulin LISPRO* 1 UNITS UNIT SUBCUT SCH ×4 (07:42→21:47)
[2016-12-23] MEDS: QUEtiapine TAB* 25 MG PO SCH (09:25)
[2016-12-23] MEDS: DULoxetine DR CAP* 30 MG CAP.DR PO SCH (09:27)
[2016-12-23] MEDS: Metoprolol Tartrate TAB* 25 MG PO SCH (09:27)
[2016-12-23] MEDS: Ascorbic Acid TAB* 500 MG PO SCH (09:27)
[2016-12-23] MEDS: Aspirin EC Low Dose* 81 MG TAB.EC PO SCH (09:28)
[2016-12-23] MEDS: Cholecalciferol TAB* 1000 UNITS PO SCH (09:28)
[2016-12-23] MEDS: Gabapentin CAP(*) 300 MG PO SCH ×2 (09:30→21:41)
[2016-12-23] MEDS: Ticagrelor* 90 MG TAB PO SCH ×2 (09:30→21:42)
[2016-12-23] MEDS: Enalapril TAB* 20 MG PO SCH (09:30)
[2016-12-23] MEDS: Finasteride TAB* 5 MG PO SCH (09:30)
--- NOTE | 2016-12-23 11:11 | PN ---
Subjective Date of Service: 12/23/16 Interval History: Patient seen and examined at bedside. Mr. Preston was reportedly up walking in the hallway with his walker and reported dizziness. He was noted to be hypotensive and pale. The patient was in a wheelchair with his eyes closed but stated, "No" when asked if he had chest pain, trouble breathing, abd pain, and/ or dizziness. He states, "I'm tired." WNL. Family at bedside with patient. Patient assisted back to bed and started on IVF; labs drawn, EKG ordered. Patient is cooperative with care and responding appropriately to questions. Family History: Unchanged from Admission Social History: Unchanged from Admission Past Medical History: Unchanged from Admission Objective Active Medications: Acetaminophen (Tylenol Tab*) 650 mg PO Q4H PRN PRN Reason: FEVER/PAIN Last Admin: 12/21/16 11:46 Dose: 650 mg Ascorbic Acid (Vitamin C Tab*) 500 mg PO DAILY [facility] Last Admin: 12/23/16 09:27 Dose: 500 mg Aspirin (Aspirin Ec Low Dose*) 81 mg PO DAILY [facility] Last Admin: 12/23/16 09:28 Dose: 81 mg Atorvastatin Calcium (Lipitor*) 80 mg PO 1700 [facility] Last Admin: 12/22/16 21:00 Dose: 80 mg Cetirizine HCl (Zyrtec*) 10 mg PO DAILY PRN; Protocol PRN Reason: Allergy Symptoms Cholecalciferol (Vitamin D Tab*) 2,000 units PO DAILY [facility] Last Admin: 12/23/16 09:28 Dose: 2,000 units Clonazepam (Klonopin Tab(*)) 0.5 mg PO BID [facility] Last Admin: 12/23/16 09:27 Dose: 0.5 mg Dextrose (D50w Syringe 50 Ml*) 12.5 gm IV PUSH .FOR FS < 60 - SS PRN PRN Reason: FS < 60 Duloxetine HCl (Cymbalta Cap*) 30 mg PO DAILY [facility] Last Admin: 12/23/16 09:27 Dose: 30 mg Enalapril Maleate (Vasotec Tab*) 20 mg PO BID [facility] Finasteride (Proscar Tab*) 5 mg PO DAILY [facility] Last Admin: 12/23/16 09:30 Dose: 5 mg Gabapentin (Neurontin Cap(*)) 900 mg PO BID [facility] Last Admin: 12/23/16 09:30 Dose: 900 mg Haloperidol Lactate (Haldol Inj Iv/Im*) 2.5 mg IV SLOW PU Q6H PRN PRN Reason: AGITATION Heparin Sodium (Porcine) (Heparin Vial(*)) 5,000 units SUBCUT Q8HR [facility] Last Admin: 12/23/16 06:26 Dose: 5,000 units Insulin Glargine (Lantus(*)) 100 units SUBCUT BEDTIME [facility] Last Admin: 12/22/16 21:41 Dose: Not Given Insulin Human Lispro (Humalog*) 0 units SUBCUT ACHS [facility] PRN Reason: Protocol Last Admin: 12/23/16 07:42 Dose: Not Given Levothyroxine Sodium (Synthroid Tab*) 125 mcg PO 0600 [facility] Last Admin: 12/23/16 06:31 Dose: 125 mcg Magnesium Hydroxide (Milk Of Magnesia Liq*) 30 ml PO Q6H PRN PRN Reason: CONSTIPATION Last Admin: 12/21/16 11:47 Dose: 30 ml Metoprolol Tartrate (Lopressor Tab*) 12.5 mg PO DAILY [facility] Last Admin: 12/23/16 09:27 Dose: 12.5 mg Polyethylene Glycol/Electrolytes (Miralax*) 17 gm PO DAILY PRN PRN Reason: CONSTIPATION Last Admin: 12/21/16 11:46 Dose: 17 gm Quetiapine Fumarate (Seroquel Tab*) 25 mg PO DAILY [facility] Last Admin: 12/23/16 09:25 Dose: 25 mg Throat Lozenges (Chloraseptic Elly*) 1 elly PO Q6H PRN PRN Reason: SORE THROAT Last Admin: 12/21/16 11:46 Dose: 1 elly Ticagrelor (Brilinta*) 90 mg PO BID [facility] Last Admin: 12/23/16 09:30 Dose: 90 mg Vital Signs 12/22/16 12/22/16 12/22/16 15:14 16:14 20:00 Temperature Pulse Rate Respiratory 18 20 18 Rate Blood Pressure (mmHg) O2 Sat by Pulse 97 Oximetry 12/22/16 12/22/16 12/23/16 21:05 23:05 03:05 Temperature Pulse Rate 98 Respiratory 18 16 14 Rate Blood Pressure (mmHg) O2 Sat by Pulse 97 Oximetry 12/23/16 12/23/16 12/23/16 07:38 08:00 09:27 Temperature 97.6 F Pulse Rate 89 Respiratory 16 18 18 Rate Blood Pressure 122/53 (mmHg) O2 Sat by Pulse 98 98 Oximetry 12/23/16 09:30 Temperature Pulse Rate Respiratory 18 Rate Blood Pressure (mmHg) O2 Sat by Pulse Oximetry Appearance: Male patient, pale in appearance, drowsy but arousable, in NAD Eyes: PERRLA Ears/Nose/Mouth/Throat: Clear Oropharnyx Neck: NL Appearance and Movements; NL JVP Respiratory: Symmetrical Chest Expansion and Respiratory Effort, Clear to Auscultation Cardiovascular: NL Sounds; No Murmurs; No JVD, RRR Abdominal: NL Sounds; No Tenderness; No Distention Extremities: No Edema, No Clubbing, Cyanosis Skin: No Rash or Ulcers Neurological: - - drowsy but arousable, oriented to self, place, family Lines/Tubes/Other Access: Clean, Dry and Intact Peripheral IV Result Diagrams: 12/18/16 19:22 12/18/16 19:22 Additional Lab and Data: Assess/Plan/Problems-Billing Assessment: Mr. Preston is a 71 yo male with PMH significant for HTN, HLD, hypothyroidism, CKD, DM, CAD and CVA who presented to the emergency room with altered mental status. - Patient Problems (1) Altered mental status Code(s): R41.82 - ALTERED MENTAL STATUS, UNSPECIFIED Comment: With hypotensive episode this AM, ? if this is similar to patient's previous episode. Check EKG, labs. Move to telemetry for further monitoring. Continues to have confusion that waxes and wanes. Continue Seroquel. Psych consult appreciated; patient deemed to lack capacity to make safe decisions. Family unable to meet needs. Anticipate long term placement. Neurology consult, input appreciated. Suspect dementia, toxic metabolic encephalopathy. Leukocytosis - CXR with no acute findings, UA WNL, foot does not appear infected. TSH, B12, Syphilis RPR negative. Suspect that his may be delirium in addition to Pt's dementia. Continue supportive care. No acute findings on MRI. (2) HTN (hypertension) Code(s): I10 - ESSENTIAL (PRIMARY) HYPERTENSION Comment: Hypotensive this AM with SBP in 80s. Hold evening dose of Vasotec. BP meds with hold parameters. (3) CAD (coronary artery disease) Code(s): I25.10 - ATHSCL HEART DISEASE OF [place] CORONARY ARTERY W/O ANG PCTRS Comment: Stable. Continue ASA, statin, beta lawrence. (4) Diabetes Code(s): E11.9 - TYPE 2 DIABETES MELLITUS WITHOUT COMPLICATIONS Comment: Glucose 70s-100s. Continue Lispro SS and lantus. Patient eating inconsistently, no changes to medication at this time. (5) Hypothyroidism Code(s): E03.9 - HYPOTHYROIDISM, UNSPECIFIED Comment: TSH 0.36, continue levothyroxine. (6) DVT prophylaxis Code(s): [id number] - Comment: Continue SQ Heparin. (7) DNR (do not resuscitate) Status and Disposition: Inpatient. Plan for NH placement.
[2016-12-23 11:16] LABS: Hematocrit 34 % (42-52); Hemoglobin 11.4 g/dl (14.0-18.0); Mean Corpuscular HGB Conc 33 g/dl (31-36); Mean Corpuscular Hemoglobin 31 pg (27-31); Mean Corpuscular Volume 93 fL (80-94); Mean Platelet Volume 10 um3 (7.4-10.4); Red Cell Distribution Width 14 % (10.5-15); White Blood Count 6.6 10^3/ul (3.5-10.8)
[2016-12-23 11:31] LABS: Albumin 3.4 g/dL (3.2-5.2); BUN/Creatinine Ratio 10.1 (8-20); Calcium 8.6 mg/dL (8.6-10.3); EGFR African American 65.2 (>60); EGFR Non-African American 50.7 (>60); Globulin 3.3 g/dL (2-4); Total Protein 6.7 g/dL (6.4-8.9)
[2016-12-23 11:33] LABS: Troponin I 0.02 ng/mL (<0.04)
[2016-12-23] MEDS ORDERED: NS 0.9% 1000 ML* 1,000 ML IV ONE (12:51)
[2016-12-23] MEDS ORDERED: NS 0.9% 1000 ML* 1,000 ML IV SCH (13:00)
[2016-12-23] MEDS: Atorvastatin* 80 MG TAB PO SCH (17:39)
--- NOTE | 2016-12-23 18:00 | PN ---
Hospitalist Progress Note Patient's condition improved back to baseline. Patient's BP responded to IVF. He continues to deny chest pain and SOB and demands to go home. No concerning findings on EKG or labs. Patient remained responsive during hypotensive episodes. Will decrease enalapril starting tomorrow and will skip this evening' s dose. Continue neuro checks. I did discuss the patient's outburst yesterday as well as mental health concerns with Dr. Mcghee. He agrees with Seroquel and 1 :1 monitoring for safety while patient is awake. Plan for NH placement, potentially tomorrow if patient condition remains stable. Continue to monitor on telemetry.
--- NOTE | 2016-12-23 20:58 | PN ---
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 The patient is due for follow-up, and they asked that the sutures to the left toe be left in place and that [facility], given his high risk factors. They also want to make sure they can arrange for proper footwear following suture removal and evaluation of the foot. Lucie will have her office call the family and discuss this. Sutures not removed from left toe per these guidelines.
--- NOTE | 2016-12-23 21:28 | RAD ---
INDICATION: Altered mental status. COMPARISON: Comparison is made with a prior CT of the brain from December 18, 2016 and a prior MRI of the brain from December 22, 2016. TECHNIQUE: Contiguous axial sections of the brain were obtained from the skull base to the vertex without contrast. FINDINGS: The ventricles, cisterns and sulci are enlarged consistent with diffuse atrophy. There is a focal area of decreased attenuation centered within the mikel on the right side which is unchanged from the prior exams most consistent with an old infarct. There is also suggestion of a lacunar infarct in the external capsule on the right side which is also unchanged. No other focal abnormalities or mass effect is seen. There is no evidence for hemorrhage. There is circumferential mucosal thickening within the maxillary sinuses and small air-fluid levels. There is opacification of multiple bilateral ethmoid air cells and an air-fluid level within the sphenoid sinus on the right side. The mastoid air cells appear clear. IMPRESSION: 1. NO EVIDENCE FOR GROSS ACUTE INFARCT, MASS EFFECT OR HEMORRHAGE. 2. OLD INFARCTS. 3. PANSINUSITIS.
[2016-12-23] MEDS: Insulin GLARGINE(*) 1 UNITS UNIT SUBCUT SCH (21:43)
[2016-12-24 05:05] LABS: Hematocrit 32 % (42-52); Hemoglobin 10.5 g/dl (14.0-18.0); Mean Corpuscular HGB Conc 33 g/dl (31-36); Mean Corpuscular Hemoglobin 31 pg (27-31); Mean Corpuscular Volume 93 fL (80-94); Mean Platelet Volume 9 um3 (7.4-10.4); Red Blood Count 3.41 10^6/ul (4.0-5.4); Red Cell Distribution Width 14 % (10.5-15); White Blood Count 6.5 10^3/ul (3.5-10.8)
[2016-12-24 05:19] LABS: BUN/Creatinine Ratio 11.8 (8-20); Calcium 8.3 mg/dL (8.6-10.3); EGFR Non-African American 60.6 (>60); Potassium 3.9 mmol/L (3.5-5.0)
[2016-12-24] MEDS: Levothyroxine TAB* 125 MCG TAB PO SCH (06:29)
[2016-12-24] MEDS: Heparin VIAL(*) 5000 UNITS/ML VIAL (FIVE THOUSAND) SUBCUT SCH (06:33)
[2016-12-24 07:42] VITALS: BP 146/58
[2016-12-24] MEDS: Ascorbic Acid TAB* 500 MG PO SCH (07:52)
[2016-12-24] MEDS: Aspirin EC Low Dose* 81 MG TAB.EC PO SCH (08:00)
[2016-12-24] MEDS: Gabapentin CAP(*) 300 MG PO SCH (08:00)
[2016-12-24] MEDS: Ticagrelor* 90 MG TAB PO SCH (08:01)
[2016-12-24] MEDS: QUEtiapine TAB* 25 MG PO SCH (08:01)
[2016-12-24] MEDS: Finasteride TAB* 5 MG PO SCH (08:01)
[2016-12-24] MEDS: Metoprolol Tartrate TAB* 25 MG PO SCH (08:01)
[2016-12-24] MEDS: DULoxetine DR CAP* 30 MG CAP.DR PO SCH (08:01)
[2016-12-24] MEDS: Insulin LISPRO* 1 UNITS UNIT SUBCUT SCH ×2 (08:02→11:54)
[2016-12-24] MEDS: clonazePAM TAB(*) 0.5 MG PO SCH (08:02)
[2016-12-24] MEDS: Cholecalciferol TAB* 1000 UNITS PO SCH (08:02)
[2016-12-24] MEDS ORDERED: Enalapril TAB* 20 MG PO SCH ×2 (09:00)
--- NOTE | 2016-12-24 10:19 | PN ---
Subjective Date of Service: 12/24/16 Interval History: Patient seen and examined at bedside. Pt states that he wants to go home today and need to have his foot looked at. Denies fever, chills, dizziness, shortness of breath, chest discomfort, N/V/D. Pt denies SI or HI or ever having it. Efrain states that he is not eating here, because he can not eat hospital food. Tele: Sinus rhythm, rate 70-80's. Family History: Unchanged from Admission Social History: Unchanged from Admission Past Medical History: Unchanged from Admission Objective Active Medications: Acetaminophen (Tylenol Tab*) 650 mg PO Q4H PRN Reason: FEVER/PAIN Ascorbic Acid (Vitamin C Tab*) 500 mg PO DAILY [facility] Aspirin (Aspirin Ec Low Dose*) 81 mg PO DAILY [facility] Atorvastatin Calcium (Lipitor*) 80 mg PO 1700 [facility] Cetirizine HCl (Zyrtec*) 10 mg PO DAILY PRN; Protocol Reason: Allergy Symptoms Cholecalciferol (Vitamin D Tab*) 2,000 units PO DAILY [facility] Clonazepam (Klonopin Tab(*)) 0.5 mg PO BID [facility] Dextrose (D50w Syringe 50 Ml*) 12.5 gm IV PUSH .FOR FS < 60 - SS PRN Reason: FS < 60 Duloxetine HCl (Cymbalta Cap*) 30 mg PO DAILY [facility] Enalapril Maleate (Vasotec Tab*) 10 mg PO BID [facility] Finasteride (Proscar Tab*) 5 mg PO DAILY [facility] Gabapentin (Neurontin Cap(*)) 900 mg PO BID [facility] Haloperidol Lactate (Haldol Inj Iv/Im*) 2.5 mg IV SLOW PU Q6H PRN Reason: AGITATION Heparin Sodium (Porcine) (Heparin Vial(*)) 5,000 units SUBCUT Q8HR [facility] Sodium Chloride (Ns 0.9% 1000 Ml*) 1,000 mls @ 150 mls/hr IV PER RATE [facility] Insulin Glargine (Lantus(*)) 100 units SUBCUT BEDTIME [facility] Insulin Human Lispro (Humalog*) 0 units SUBCUT ACHS [facility] Levothyroxine Sodium (Synthroid Tab*) 125 mcg PO 0600 [facility] Magnesium Hydroxide (Milk Of Magnesia Liq*) 30 ml PO Q6H PRN Reason: CONSTIPATION Metoprolol Tartrate (Lopressor Tab*) 12.5 mg PO DAILY [facility] Polyethylene Glycol/Electrolytes (Miralax*) 17 gm PO DAILY PRN Reason: CONSTIPATION Quetiapine Fumarate (Seroquel Tab*) 25 mg PO DAILY [facility] Throat Lozenges (Chloraseptic Elly*) 1 elly PO Q6H PRN Reason: SORE THROAT Ticagrelor (Brilinta*) 90 mg PO BID [facility] Vital Signs 12/23/16 12/23/16 12/23/16 10:56 11:02 11:27 Temperature Pulse Rate 88 84 Respiratory 14 17 14 Rate Blood Pressure 82/42 89/39 (mmHg) O2 Sat by Pulse 97 95 Oximetry 12/23/16 12/23/16 12/23/16 11:30 11:48 15:40 Temperature 98.0 F Pulse Rate 72 74 Respiratory 24 Rate Blood Pressure 78/46 95/52 131/62 (mmHg) O2 Sat by Pulse 99 91 Oximetry 12/23/16 12/23/16 12/23/16 19:53 20:00 21:40 Temperature 98.5 F Pulse Rate 73 Respiratory 16 16 20 Rate Blood Pressure 109/55 (mmHg) O2 Sat by Pulse 100 100 Oximetry 12/23/16 12/23/16 12/23/16 21:41 23:16 23:40 Temperature 99.5 F Pulse Rate 91 Respiratory 20 16 16 Rate Blood Pressure 118/63 (mmHg) O2 Sat by Pulse 93 Oximetry 12/23/16 12/24/16 12/24/16 23:41 04:51 07:39 Temperature 97.9 F 97.8 F Pulse Rate 82 71 Respiratory 16 16 16 Rate Blood Pressure 114/59 146/58 (mmHg) O2 Sat by Pulse 95 100 Oximetry Oxygen Devices in Use Now: None Appearance: NAD, sitting up in bed. Eyes: No Scleral Icterus, PERRLA Ears/Nose/Mouth/Throat: NL Teeth, Lips, Gums, Mucous Membranes Moist Neck: NL Appearance and Movements; NL JVP, Trachea Midline Respiratory: Symmetrical Chest Expansion and Respiratory Effort, Clear to Auscultation Cardiovascular: NL Sounds; No Murmurs; No JVD, RRR Abdominal: NL Sounds; No Tenderness; No Distention - Bowel sounds present Extremities: No Edema Neurological: NL Muscle Strength and Tone, - - Alert and Oriented to Person and Place Lines/Tubes/Other Access: Clean, Dry and Intact Peripheral IV - site benign Nutrition: Taking PO's Result Diagrams: 12/24/16 04:47 12/24/16 04:47 Additional Lab and Data: Assess/Plan/Problems-Billing Assessment: Mr. Preston is a 71 yo male with PMH significant for HTN, HLD, hypothyroidism, CKD, DM, CAD and CVA who presented to the emergency room with altered mental status. - Patient Problems (1) Altered mental status Code(s): R41.82 - ALTERED MENTAL STATUS, UNSPECIFIED SNOMED Code(s): 011701491 Comment: Continues to have confusion that waxes and wanes. Psych consult appreciated; patient deemed to lack capacity to make safe decisions. Family unable to meet needs. Anticipate group home placement. Neurology consult, input appreciated. Suspect dementia, with delirium. Leukocytosis - CXR with no acute findings, UA WNL, foot does not appear infected. TSH, B12, Syphilis RPR negative. No acute findings on MRI. Continue supportive care and Seroquel. (2) HTN (hypertension) Code(s): I10 - ESSENTIAL (PRIMARY) HYPERTENSION SNOMED Code(s): 21582731 Comment: SBP 100-140s. Continue metoprolol with hold parameters. Will decrease Vasotec to daily. (3) CAD (coronary artery disease) Code(s): I25.10 - ATHSCL HEART DISEASE OF [place] CORONARY ARTERY W/O ANG PCTRS SNOMED Code(s): 04517905 Comment: Stable. Continue ASA, statin, beta lawrence. (4) Diabetes Code(s): E11.9 - TYPE 2 DIABETES MELLITUS WITHOUT COMPLICATIONS SNOMED Code(s) : 92209956 Comment: Glucose 120s-180s. Continue Lispro SS and lantus. Patient eating inconsistently, no changes to medication at this time. (5) Hypothyroidism Code(s): E03.9 - HYPOTHYROIDISM, UNSPECIFIED SNOMED Code(s): 35240772 Comment: TSH 0.36, continue levothyroxine. (6) DVT prophylaxis Code(s): FCF1609 - SNOMED Code(s): 764469174 Comment: Continue SQ Heparin. (7) DNR (do not resuscitate) Status and Disposition: Inpatient. Plan for NH placement.
--- NOTE | 2016-12-24 13:09 | DS ---
DATE OF ADMISSION: 12/19/2016. DATE OF DISCHARGE: 12/24/2016. AGE: 71. ATTENDING PHYSICIAN: Dr. Jaiden Paul *(dictated by Mariluz Lazar NP). PRIMARY CARE PHYSICIAN: Dr. Memo Donaldson. PRIMARY DIAGNOSIS: Dementia with delirium. SECONDARY DIAGNOSES: 1. Hypertension. 2. Coronary artery disease. 3. Diabetes mellitus. 4. Hypothyroidism. CONSULTATIONS WHILE IN THE HOSPITAL: Dr. Michael Lyon with Neurology and Dr. Edi Aguilar with Neurology; Dr. Michael Mcghee with Psychiatry. STUDIES WHILE IN THE HOSPITAL: 1. Brain CT, 12/18/2016: Radiologist's impression: Cortical atrophy with chronic ischemic changes to include a remote pontine infarct. No acute findings. 2. Chest x-ray, 12/18/2016: Radiologist's impression: Expiratory exam. No focal infiltrates. 3. Electroencephalogram, 12/19/2016: Neurologist's clinic impression: Essentially normal awake EEG. There are no epileptiform features to this recording. 4. Brain MRI, 12/22/2016: Radiologist's impression: Limited study. Involutional change with findings consistent with remote pontine infarct. Extensive sinus mucosal inflammatory disease with air-fluid levels in the maxillary sinuses and sphenoid sinus and frontal sinuses. In the correct clinical setting, this may represent acute sinusitis. 5. Brain CT, 12/23/2016: Radiologist's impression: No evidence for gross acute infarct, mass effect or hemorrhage. Old infarcts. Pansinusitis. DISCHARGE MEDICATIONS: New home medications: 1. Acetaminophen 650 mg oral every 4 hours as needed for fever or pain. 2. Milk of Magnesia 30 ml oral every 6 hours as needed for constipation. 3. Seroquel 25 mg oral daily. 4. Lispro insulin sliding scale: For glucose 131 to 150, give 2 units subcutaneous; for glucose 151 to 200, give 3 units; for glucose 201 to 250, give 6 units; for glucose 251 to 300, give 9 units; for glucose 301 to 350, give 12 units; for glucose 351 to 400, give 15 units subcutaneous before meals and at bedtime. Continued home medications: 1. Omeprazole 20 mg oral twice daily. 2. Nandini 180 mg daily as needed for allergy symptoms. 3. Aspirin 81 mg oral daily. 4. Lantus insulin 100 units subcutaneous at bedtime. 5. Gabapentin 900 mg oral twice daily. 6. Vitamin D3 2000 units oral daily. 7. Vitamin C 500 mg oral daily. 8. Levothyroxine 125 mcg oral daily. 9. Clonazepam 0.5 mg oral twice daily. 10. Cymbalta 30 mg oral daily. 11. Atorvastatin 80 mg oral daily. 12. Brilinta 90 mg oral twice daily. 13. Metoprolol tartrate 12.5 mg oral daily. Changed home medications: 1. Enalapril 20 mg oral daily. 2. Finasteride 5 mg oral daily at bedtime. Discontinued home medications: Levofloxacin, NovoLog FlexPen, potassium chloride. HISTORY OF PRESENT ILLNESS/HOSPITAL COURSE: Mr. Preston is a 71-year-old male with a past medical history significant for diabetes mellitus, hypertension, hyperlipidemia, TIA's, past pontine cerebrovascular accident, coronary artery disease, and chronic low back pain who has had multiple falls at home. The patient's family reported taking him to [facility] for evaluation where they did not find anything acutely wrong with the patient and he was sent home. The family believes that the patient had recently been diagnosed with encephalopathy, but they were unsure of what that met. The patient continued to become more confused and he was staying alone most of the time with reported episodes of violence. The patient felt that he should be further evaluated, so the patient was brought to [facility] via EMS for further evaluation of his symptoms. While in the emergency room, the patient had a brain CT showing no acute findings. He had labs that were significant for a white blood cell count of 12.3. His urinalysis was unremarkable. Chest x-ray with no acute findings. The patient had an EKG showing a normal sinus rhythm with a rate of 91 and there were no acute ST-T wave changes. Based off the patient's presentation and concern for multiple falls and the patient's living conditions, Hospitalist Medicine was asked to evaluate the patient for admission. While in the hospital, the patient was seen in consultation by Neurology. The patient underwent an EEG showing no epileptiform. Neurology felt that the patient could possibly have a toxic metabolic encephalopathy, possibly a superimposed dementia. It was recommended that the patient have further work- up to evaluate for possible infection or other causes of delirium. The patient' s leukocytosis resolved during his hospital stay. He did present with an elevated creatinine, but this appeared to be near the patient's baseline. It did improve with IV hydration. The patient had troponins that were unremarkable at 0.01, 0.01 and 0.02. The patient's TSH was 0.36. The patient intermittently was more confused, sometimes more than others. The patient's family asked for Neurology to reconsult. The patient re-seen in consultation by Dr. Aguilar with Neurology who recommended further work-up of the patient, including an MRI to rule out any reversible causes of the patient's declining mental status. The patient also had a vitamin B12 checked that was within normal limits and the patient had syphilis serology that was negative. It was felt that due to the patient's progressive onset of nature, that this may in fact represent an Alzheimer's dementia versus a vascular dementia as the patient did not have a sudden decline, more a gradual decline. The patient continued to be confused, but had improvement of his mental status. He was doing well. He did have a hypotensive episode and his blood pressure medications have been adjusted. The patient has denied any chest pain. He was initially on oxygen, but was able to be weaned off of oxygen. 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 The patient was started on Seroquel, which seems to be assisting with the patient's mood. The patient was seen in consultation by Psychiatry, who determined the patient did not have capacity to refuse senior care placement. Mr. Preston is stable for discharge to [facility] today. Vital signs are as follows: Temperature 97.8, heart rate 71, respiratory rate 16, O2 sat 100 percent on room air, blood pressure 146/58. DISCHARGE PLAN: Mr. Preston will be discharged to [facility]. The patient does still have sutures in his left second toe. These need to be removed at the [facility] office. They would like the patient's family to call and set up an appointment for follow-up as they would like to evaluate the wound prior to suture removal. The patient's family has been encouraged to call in the next few days to set up this appointment. The patient should be seen in follow-up by his primary care provider, Dr. Memo Donaldson or a provider at [facility], in the next few days. As far as the patient's regular medications for his hypertension, he did have some hypotension. He should be continued on his Metoprolol and his Vasotec has been decreased to daily. This may be adjusted back up to twice daily if he continues to have hypertension. The patient's diabetes has been relatively controlled, although he is not eating consistently. For now, I recommend continuing him on his Lantus of 100 units daily and continuing on Lispro sliding scale coverage. For the patient's hypothyroidism, his TSH was 0.36. He should be continued on his Levothyroxine. The patient should also be continued on Seroquel. ACTIVITY: As tolerated. He should use a walker. DIET: Consistent carbohydrate, heart-healthy diet. This is a summarized report of a complex medical history and hospital stay. For further details, please see the entire medical record. Time for this discharge was 50 minutes and 25 minutes were spent [id number] with the patient discussing discharge plans and instructions. CONDITION ON DISCHARGE: Stable. Reviewed by HERBERTH CARD 01/06/16 1024 CC: Dr. Memo Donaldson* [id number]/[facility] #: [id number] DUSTIN
== END 2016-12-24 12:40 | DRG 56 ==
LOC: ED 19:05 → MEDTELE 12-19 01:54 → MED 12-22 12:19 → MEDTELE 12-23 14:53
PROVIDERS: ADMIT Internal Medicine; ATTEND Hospitalist
DX: G30.9 Alzheimer's disease, unspecified (principal); G92 Toxic encephalopathy; F05 Delirium due to known physiological condition; I11.9 Hypertensive heart disease without heart failure; E11.9 Type 2 diabetes mellitus without complications; D72.829 Elevated white blood cell count, unspecified; F02.80 Dementia in other diseases classified elsewhere, unspecified severity, without behavioral disturbance, psychotic disturbance, mood disturbance, and anxiety; I25.10 Atherosclerotic heart disease of native coronary artery without angina pectoris; E03.9 Hypothyroidism, unspecified; E78.5 Hyperlipidemia, unspecified; N40.0 Benign prostatic hyperplasia without lower urinary tract symptoms; K21.9 Gastro-esophageal reflux disease without esophagitis; M54.30 Sciatica, unspecified side; Z86.73 Personal history of transient ischemic attack (TIA), and cerebral infarction without residual deficits; Z79.84 Long term (current) use of oral hypoglycemic drugs; Z91.81 History of falling; Z79.82 Long term (current) use of aspirin; Z79.4 Long term (current) use of insulin; Z79.899 Other long term (current) drug therapy; Z88.8 Allergy status to other drugs, medicaments and biological substances; Z80.8 Family history of malignant neoplasm of other organs or systems; Z82.49 Family history of ischemic heart disease and other diseases of the circulatory system; Z87.891 Personal history of nicotine dependence; Z89.422 Acquired absence of other left toe(s); Z66 Do not resuscitate
CPT/HCPCS: 36415; 70450; 70551; 71010; 80048; 80053; 80061; 81003; 82140; 82607; 83605; 84443; 84484; 85025; 85610; 85730; 86592; 93005; 94760; 95819; A9270-GY; J1630; J1644; J2060; J2310